=== PATIENT | female | born 1995 | race Caucasian/White ===

== ENCOUNTER 2017-05-28 23:18 | Emergency (ER) | payer SELFPAY ==
[~2017-05-28 23:18] MED LIST: LAC PO; MAC100 PO; MOTRIN800 MG PO; NORCO1 TA2 PO
[2017-05-29 00:20] LABS: UA SPECIFIC GRAVITY 1.025 (1.005-1.035); microscopic required? YES; urine erythrocyte TRACE (NEGATIVE)
[2017-05-29 01:49] VITALS: BP 137/81
== END 2017-05-29 01:50 | disposition home or self-care (01) ==
LOC: ED 23:18
PROVIDERS: Emergency Medicine
DX: O34.11 Maternal care for benign tumor of corpus uteri, first trimester (principal); Z3A.00 Weeks of gestation of pregnancy not specified; R03.0 Elevated blood-pressure reading, without diagnosis of hypertension